=== PATIENT | male | born 1970 | race Caucasian/White ===

== ENCOUNTER 2023-01-25 08:48 | Outpatient (CLI) | payer BC, SELFPAY ==
[2023-01-25 11:21] LABS: Alanine Aminotransferase 52 U/L (6-50); Aspartate Amino Transferase 99 U/L (17-59)
== END 2023-01-25 08:49 | disposition home or self-care (01) ==
PROVIDERS: PCP Family Medicine; Visit Provider Podiatrist Foot & Ankle Surgery
DX: B35.1 Tinea unguium (principal)
CPT/HCPCS: 36415; 84450; 84460